=== PATIENT | female | born 1970 | race Caucasian/White ===

== ENCOUNTER 2017-11-14 20:53 | Emergency (ER) | payer BC, OTHER ==
[2017-11-14 21:53] VITALS: BP 143/89
--- NOTE | 2017-11-14 21:55 | ERNOTE ---
Lower Extremity HPI - Narrative Date of Service: 11/14/17 - General Lower Extremities Pain: foot: left - pain and swelling post injury Time Seen by Provider: 11/14/17 21:27 Source: patient Exam Limitations: no limitations - Immun/Allergies/Home Medications Immunizations: IMMUNIZATION HX Immunizations Up to Date Yes History of Influenza Vaccine No Hx Pneumococcal Vaccination No Allergies/Adverse Reactions: Allergies Allergy/AdvReac Type Severity Reaction Status Date / Time sulfisoxazole Allergy Intermediate Hives Verified 11/14/17 21:22 [From Gantrisin] bupropion HCl AdvReac Mild dizziness, Verified 03/05/14 13:11 [From Wellbutrin] VOGT Home Medications: HOME MEDICATIONS Cholecalciferol (Vitamin D3) [Vitamin D] 400 unit PO DAILY 04/20/13 [Last Taken Unknown] Estrogens, Conjugated [Premarin] 0.625 mg PO DAILY 04/20/13 [Last Taken Unknown] Furosemide [Lasix] 40 mg PO DAILY 04/20/13 [Last Taken Unknown] Multivitamin [Multivitamins] 1 each PO DAILY 04/20/13 [Last Taken Unknown] Venlafaxine HCl [Effexor Xr] 150 mg PO DAILY 04/20/13 [Last Taken Unknown] Calcium Carbonate/Vitamin D3 [Calcium 600 + Vit D Tablet] 2 each PO QPM [Last Taken Unknown] Fluticasone Propionate [Flonase] 1 spray NS BID 02/14/14 [Last Taken Unknown] Levothyroxine Sodium [Synthroid] 100 mcg PO DAILY 02/14/14 [Last Taken Unknown] Cephalexin Monohydrate [Keflex] 1,000 mg PO Q12H #20 cap 07/18/14 [Last Taken Unknown] Fluconazole [Diflucan] 150 mg PO ONCE #1 tab 07/18/14 [Last Taken Unknown] Phenazopyridine HCl [Pyridium] 200 mg PO TID #6 tablet 07/18/14 [Last Taken Unknown] - History of Present Illness Narrative: patient stepped down and felt foot pop followed by pain and swelling, previous srgery on foot Occurred: just prior to arrival Location of Incident: work Method of Injury: Reports: twisted Reason for Fall: Reports: other - no fall Modifying Factors - (Improves): Reports: rest Modifying Factors - (Worsens): Reports: movement Associated Symptoms: Reports: unable to bear weight Other Injuries: Reports: none Review of Systems - Narrative Narrative: unremarkable - Review of Systems Constitutional: Present: See HPI, weakness, malaise EYE: Present: no symptoms reported ENT: Present: no symptoms reported Respiratory: Present: no symptoms reported Cardiology: Present: no symptoms reported Gastrointestinal/Abdominal: Present: no symptoms reported Genitourinary: Present: no symptoms reported Musculoskeletal: Present: See HPI, joint pain, joint swelling Skin: Present: no symptoms reported Neurological: Present: no symptoms reported Endocrine: Present: no symptoms reported Hematologic/Lymphatic: Present: no symptoms reported Psych: Present: no symptoms reported All Other Systems: All systems neg except as marked - Narrative Narrative: unremarkable - Patient's Past Medical History Patient History - Medical: Depression, Other Patient History - Cardiac/Respiratory: No pertinent hx Patient History - Cancer: No Hx of Cancer Patient History - Surgical Procedures: Appendectomy, Cholecystectomy, Ear Tubes , Gastric Bypass, Hysterectomy, T & A, Other, ENT, Orthopedic Patient History - Other: None LMP (females 10-50): other - Family History Family History:: no untoward family reactions to anesthesia, no familial bleeding tendencies, no family history of clotting disorders, no family history of premature - Social History Living Situations: home Abuse History: No History of abuse Psych History: No pertinent hx Smoking Status: Never smoker Have you smoked in the past 12 months: No Do you dip or chew tobacco: No Patient requests Smoking Cessation Consult: No Initiate information on Smoking Cessation: No Alcohol Use: none Drug Use: none - Immunizations Immunizations Up to Date: Yes Hx Pneumococcal Vaccination: No History of Influenza Vaccine: No Physical Exam - Physical Exam General Appearance: Present: mild distress, anxious Head Exam: Present: normal inspection, no evidence of injury Eye Exam: Normal inspection: bilateral, PERRL: bilateral, EOMI: bilateral Ears, Nose, Throat: Present: normal ENT inspection, normal pharynx Neck: Present: normal inspection, nontender Respiratory: Present: no respiratory distress, normal breath sounds, no accessory muscle use, chest nontender, lungs clear Cardiovascular/Chest: Present: regular rate, rhythm, no murmur, normal peripheral pulses Gastrointestinal/Abdominal: Present: normal bowel sounds, nontender, nondistended, soft, no organomegaly Back Exam: Present: normal inspection, normal range of motion, no CVA tenderness , no vertebral tenderness Extremity Exam: Present: bony tenderness - pain and swelling mid foot lateral aspect, no deformity noted, joint swelling, other Neurological Exam: Present: alert, oriented, normal mood/affect, no motor/ sensory deficits Skin Exam: Present: normal color, warm/dry Lymphatic Exam: Present: no adenopathy ED Progress - Date and Time Seen: Date and Time: 11/14/17 21:53 condition unchanged, discussed x-ray results with patient - Vital Signs Patient's Vital Signs:: I have reviewed the patient's vital signs. Vital Signs: Vital Signs 11/14/17 21:17 Temperature 36.4 C L Pulse Rate 96 Respiratory 20 Rate Blood Pressure 159/113 O2 Sat by Pulse 98 Oximetry - X-Ray X-Ray #1 X-Ray: foot Interpretation: Interp. by me - no osseus deformity - Progress/Reassessment Chief Complaint: Foot Injury/Pain Progress:: Unchanged - Transfer of Care Expected Disposition: Discharge Plan - Plan Plan: to be discharged Departure Clinical Impression: Sprain of foot, left - Departure Disposition: Home self-care Condition: Fair Instructions: Foot Sprain Referrals: Nell Abdul MD [Primary Care Provider] -
== END 2017-11-14 22:02 | disposition home or self-care (01) ==
LOC: ER 20:53
DX: S93.602A Unspecified sprain of left foot, initial encounter (principal); X50.1XXA Overexertion from prolonged static or awkward postures, initial encounter; Y93.89 Activity, other specified; Y92.89 Other specified places as the place of occurrence of the external cause; Y99.0 Civilian activity done for income or pay